=== PATIENT | male | born 1975 | race Caucasian/White ===

== ENCOUNTER 2020-04-15 07:05 | Day surgery (SDC) | payer MEDICAID ==
[2020-04-09 13:05] LABS: BASOPHILS # (AUTO) 0.1 X10'3 (0-0.2); BASOPHILS % (AUTO) 1.2 % (0-1); EOSINOPHILS # (AUTO) 0.2 X10'3 (0-0.9); EOSINOPHILS % (AUTO) 3.6 % (0-6); LYMPHOCYTES # (AUTO) 2.1 X10'3 (1.1-4.8); LYMPHOCYTES % (AUTO) 34.7 % (21-51); MEAN CORPUSCULAR HEMOGLOBIN 29.8 PG (27.0-31.0); MEAN CORPUSCULAR VOLUME 87.7 FL (78-98); MONOCYTES # (AUTO) 0.3 X10'3 (0-0.9); MONOCYTES % (AUTO) 5.6 % (2-12); NEUTROPHILS # (AUTO) 3.4 X10'3 (1.8-7.7); NEUTROPHILS % (AUTO) 54.9 % (42-75); PRE OP HEMATOCRIT 42.3 % (42.0-52.0); PRE OP HEMOGLOBIN 14.4 g/dL (14.0-17.9); PRE OP PLATELET COUNT 303 X10'3 (140-440); RED BLOOD COUNT 4.83 X10'6 (4.70-6.10); RED CELL DISTRIBUTION WIDTH 13.9 % (11.5-14.5)
[2020-04-09 13:19] LABS: ALBUMIN 3.7 G/DL (3.4-5.0); ALBUMIN/GLOBULIN RATIO 0.9 (1.1-1.5); ALKALINE PHOSPHATASE 96 IU/L (46-116); BLOOD UREA NITROGEN 11 MG/DL (7-18); BUN/CREATININE RATIO 12.2 (5.4-32.0); CALCIUM 8.9 MG/DL (8.5-10.1); CHLORIDE 104 MMOL/L (99-107); PRE OP ALT 15 U/L (30-65); PRE OP ANION GAP 6 (8-16); PRE OP AST 8 U/L (10-37); PRE OP BILIRUB, TOTAL 0.6 MG/DL (0.0-1.0); PRE OP GLUCOSE 94 MG/DL (70-104); PRE OP POTASSIUM 4.3 MMOL/L (3.4-5.1); PRE OP SODIUM 141 MMOL/L (135-145); TOTAL CARBON DIOXIDE 30.8 MMOL/L (24-32); TOTAL PROTEIN 7.6 G/DL (6.4-8.2); eGFR > 90 ML/MIN
[2020-04-15] VITALS (16 sets, daily range): BP systolic 93–119; BP diastolic 61–94
[~2020-04-15] VITALS: Ht 185.4 cm; Wt 67.3 kg
[~2020-04-15 07:05] MED LIST: BUPIVAcaine/PF 2.5 mg/ml (0.25%) 30ml vial ONE; LIDOcaine 1% 30ml preserv. free vial ONE; NO HOME MEDS; ceFAZolin 2gm in dextrose, iso 50 ML IV ONE; famotidine 20mg tablet PO ONE; ringers solution, lacted 1,000 ML IV SCH
[2020-04-15] MEDS ORDERED: oxyCODONE/APAP 10/325mg tablet PO PRN (09:30)
[2020-04-15] MEDS ORDERED: oxyCODONE/APAP 5-325mg tablet PO PRN (09:30)
[2020-04-15] MEDS ORDERED: sevoflurane 250ml liquid IH ONE (09:35)
[2020-04-15] MEDS ORDERED: midazolam 2 mg/2 ml injection ONE (09:38)
[2020-04-15] MEDS ORDERED: rocuronium 10mg/ml inj IV ONE (09:55)
[2020-04-15] MEDS ORDERED: LIDOcaine 2% 5ml jelly ONE (09:55)
[2020-04-15] MEDS ORDERED: LIDOcaine 2% (20mg/ml) 5ml vial ONE (09:55)
[2020-04-15] MEDS ORDERED: propofol inj 20 ML IV ONE (09:55)
[2020-04-15] MEDS ORDERED: fentaNYL /PF 50mcg/ml 5ml ampule ONE (09:55)
[2020-04-15] MEDS ORDERED: neostigmine methylsulfate 1 MG/ML 10ml vial ONE (10:07)
[2020-04-15] MEDS ORDERED: glycopyrrolate 0.2mg/ml inj ONE (10:07)
[2020-04-15] MEDS ORDERED: ondansetron/PF 4mg/2ml inj ONE (10:07)
[2020-04-15] MEDS ORDERED: dexamethasone sod phosphate 4mg/ml inj. ONE (10:07)
[2020-04-15] MEDS ORDERED: BUPIVAcaine/PF 2.5 mg/ml (0.25%) 30ml vial IJ ONE (10:18)
[2020-04-15] MEDS ORDERED: meperidine/PF 25mg/ml syringe IV PRN (10:25)
[2020-04-15] MEDS ORDERED: proCHLORperazine 10 MG/2 ml inj IV PRN (10:25)
[2020-04-15] MEDS ORDERED: HYDROmorphone/PF 0.2 MG/ML SYRINGE IV PRN ×2 (10:25)
[2020-04-15] MEDS ORDERED: ondansetron/PF 4mg/2ml inj IV PRN (10:25)
[2020-04-15] MEDS ORDERED: acetaminophen 1,000mg/100ml IV 100 ML IV PRN (10:25)
[2020-04-15] MEDS ORDERED: hydrALAZINE 20mg/ml inj. IV PRN (10:25)
[2020-04-15] MEDS ORDERED: ringers solution, lacted 1,000 ML IV SCH (10:25)
[2020-04-15] MEDS ORDERED: morphine 2 MG/ML inj. syringe IV PRN (10:25)
[2020-04-15] MEDS ORDERED: labetalol 20mg/4ml (5mg/ml) syringe IV PRN (10:25)
[2020-04-15] MEDS ORDERED: morphine 4 MG/ML inj SYRINge IV PRN (10:25)
--- NOTE | 2020-04-15 10:53 | NUR ---
Received from OR via [facility] , accompanied by Anesthesiologist HAYLEY and report given by Anesthesiolgist. 3 ABD INCISION COVERED BY BAND AIDS. NO SWELLING, DISCHARGE OR OBVIOUS BLEEDING. PT ON NRB MASK AT 10 LPM SPO2 100%. PT CURRENTLY ASLEEP WITH HOB ELEVATED. VSS. Addendum: 04/15/20 at 1107 by Rafat Grimaldo RN, RN Amended: Links added.
--- NOTE | 2020-04-15 12:43 | NUR ---
TRANSFERED TO [facility] UNIT WHERE VICENTAULYSSES TOOK CARE OF PATIENT. ALL QUESTIONS ANSWERED AND PATIENT IN NO DISTRESS AT THIS TIME. PETAR. IZABEL PRESENT. Addendum: 04/15/20 at 1259 by Rafat Grimaldo RN RN Amended: Links added.
[2020-04-15] MEDS ORDERED: oxyCODONE/APAP 5-325mg tablet PO ONE (13:00)
--- NOTE | 2020-04-15 14:25 | NUR ---
SCANNED PT'S BLADDER AFTER HIS ATTEMPT OF PEEING INTERMITTENTLY IN THE BATHROOM. HE STATES "I GO A LITTLE THEN IT LOCKS UP" LARGEST AMOUNT SCANNED WAS 476CC. WILL PLACE WINTER PER PROTOCOL. PT WILL ATTEMPT TO URINATE ONE MORE TIME.
[2020-04-15] MEDS ORDERED: LIDOcaine 2% 10ml TOPICAL JELLY (Urojet) MM ONE (14:45)
--- NOTE | 2020-04-15 15:30 | NUR ---
16FR WINTER CATH PLACED, 350CC CLEAR YELLOW OUT PT TOLERATED WELL. PT STATES, "I'M READY TO GO HOME".
== END 2020-04-15 16:00 | disposition home or self-care (01) ==
LOC: PAS 07:05
PROVIDERS: ATTEND Surgery
DX: K42.0 Umbilical hernia with obstruction, without gangrene (principal); K40.91 Unilateral inguinal hernia, without obstruction or gangrene, recurrent; Z98.890 Other specified postprocedural states; F17.210 Nicotine dependence, cigarettes, uncomplicated; Z72.89 Other problems related to lifestyle; Z20.822 Contact with and (suspected) exposure to COVID-19; Z79.899 Other long term (current) drug therapy
CPT/HCPCS: 36415; 49651; 49653; 80053; 82948; 85025; 87635; 93005; C1781; J1100; J2001; J2250; J2405; J2704; J2710; J3010; J3490; J7120; S2900; A4215; A4618; A7000